=== PATIENT | male | born 1985 | race Caucasian/White ===

== ENCOUNTER 2016-11-04 19:04 | Emergency (ER) | payer SELFPAY ==
[2016-11-04 19:13] VITALS: BMI 28.7
[2016-11-04] MEDS ORDERED: ACETAMINOPHEN 325 MG TABLET (FP) ONE (19:41)
[2016-11-04] MEDS ORDERED: IBUPROFEN 400 MG TABLET (FP) PO ONE ×2 (19:46→19:57)
[2016-11-04] MEDS ORDERED: TETANUS AND DIPHTHERIA TOXOID 0.5 ML DISP.SYRIN IM ONE (19:46)
--- NOTE | 2016-11-04 19:50 | PDOC ---
History of Present Illness - General History Source: Patient Exam Limitations: No Limitations - History of Present Illness Initial Comments: 11/04/16 20:32 The patient is a 31-year-old male with no significant past medical history, and presents to the emergency department with head, neck, and ear pain s/p mechanical injury to the upper body 4 days ago. 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 He reports he has pain in the frontal region of his head that radiates down to his left ear and neck. He reports associated dizziness. He states he went to the [facility] a few days ago for this injury and had some imaging scans. The patient denies chest pain and shortness of breath. The patient denies fever , chills, nausea, vomit, diarrhea and constipation. The patient denies dysuria, frequency, urgency and hematuria. Allergies: NKDA Social History: No toxic habits reported <Marile Catalan - Last Filed: 11/04/16 22:16> <Fabian Sabillon - Last Filed: 11/04/16 22:33> - General Chief Complaint: Injury Stated Complaint: HEAD/NECK PROBLEM Past History <Mariel Catalan - Last Filed: 11/04/16 22:16> - Past Medical History Other medical history: denies - Surgical History Abdominal Surgery: Yes (hernia) - Immunization History Immunization Up to Date: Yes - Psycho/Social/Smoking Cessation Hx Suicidal Ideation: No Smoking History: Never smoked Hx Alcohol Use: No Drug/Substance Use Hx: No Substance Use Type: None <Fabian Sabillon - Last Filed: 11/04/16 22:33> - Past Medical History Allergies/Adverse Reactions: Allergies Allergy/AdvReac Type Severity Reaction Status Date / Time No Known Allergies Allergy Verified 11/04/16 19:14 Home Medications: Ambulatory Orders Doxycycline Hyclate [Vibratab -] 100 mg PO BID #42 tablet 03/01/16 Ondansetron [Zofran *Odt*] 8 mg SL TID #30 od.tablet 11/04/16 Review of Systems - Review of Systems Able to Perform ROS?: Yes Comments:: 11/04/16 20:33 GENERAL/CONSTITUTIONAL: No fever or chills. No weakness. HEAD, EYES, EARS, NOSE AND THROAT: (+) Head pain. (+) Left ear pain. No change in vision. No ear discharge. No sore throat. CARDIOVASCULAR: No chest pain or shortness of breath. RESPIRATORY: No cough, wheezing, or hemoptysis. GASTROINTESTINAL: No nausea, vomiting, diarrhea or constipation. GENITOURINARY: No dysuria, frequency, or change in urination. MUSCULOSKELETAL: (+) Neck pain. No joint or muscle swelling or pain. No back pain. SKIN: No rash NEUROLOGIC: (+) Dizziness. No headache, vertigo, loss of consciousness, or change in strength/sensation. ENDOCRINE: No increased thirst. No abnormal weight change. HEMATOLOGIC/LYMPHATIC: No anemia, easy bleeding, or history of blood clots. ALLERGIC/IMMUNOLOGIC: No hives or skin allergy. <Mariel Catalan - Last Filed: 11/04/16 22:16> *Physical Exam - Vital Signs Last Vital Signs Temp Pulse Resp BP Pulse Ox 98 F 73 18 139/80 99 11/04/16 19:07 11/04/16 19:07 11/04/16 19:07 11/04/16 19:07 11/04/16 19:07 - Physical Exam Comments: 11/04/16 22:16 GENERAL: Awake, alert, and fully oriented, in no acute distress HEAD: No signs of trauma EYES: PERRLA, EOMI, sclera anicteric, conjunctiva clear ENT: (+) Some dry cerumen. Auricles normal inspection, hearing grossly normal, nares patent, oropharynx clear without exudates. Moist mucosa NECK: Normal ROM, supple, no lymphadenopathy, JVD, or masses LUNGS: Breath sounds equal, clear to auscultation bilaterally. No wheezes, and no crackles HEART: Regular rate and rhythm, normal S1 and S2, no murmurs, rubs or gallops ABDOMEN: Soft, nontender, normoactive bowel sounds. No guarding, no rebound. No masses EXTREMITIES: Normal range of motion, no edema. No clubbing or cyanosis. No cords, erythema, or tenderness NEUROLOGICAL: Cranial nerves II through XII grossly intact. Normal speech, normal gait SKIN: Warm, Dry, normal turgor, no rashes or lesions noted. <Mariel Catalan - Last Filed: 11/04/16 22:16> - Vital Signs Last Vital Signs Temp Pulse Resp BP Pulse Ox 98 F 73 18 139/80 99 11/04/16 19:07 11/04/16 19:07 11/04/16 19:07 11/04/16 19:07 11/04/16 19:07 <Fabian Sabillon - Last Filed: 11/04/16 22:33> ED Treatment Course - Medications Given in the ED: ED Medications Discontinued Medications Generic Name Dose Route Start Last Admin Trade Name Primo PRN Reason Stop Dose Admin Acetaminophen 975 mg 11/04/16 19:53 11/04/16 19:53 Tylenol - PO 11/04/16 19:54 975 mg NOW ONE Administration Ibuprofen 800 mg 11/04/16 19:46 11/04/16 19:51 Motrin - PO 11/04/16 19:47 800 mg ONCE ONE Administration Tetanus/Diphtheria Toxoids Adsorbed 0.5 ml 11/04/16 19:46 11/04/16 19:49 Decavac - IM 11/04/16 19:47 0.5 ml .ONCE ONE Administration <Mariel Catalan - Last Filed: 11/04/16 22:16> - RADIOLOGY Radiology Studies Ordered: Category Date Time Status HEAD CT WITHOUT CONTRAST [CT] Stat CT Scan 11/04/16 19:46 Ordered Radiograph Interpretation: 11/04/16 22:32 All images negative for acute pathology. <Fabian Sabillon - Last Filed: 11/04/16 22:33> Medical Decision Making - Medical Decision Making 11/04/16 22:31 This is a 31yo M with recent head trauma with heavy metal object while at work and now has residual pain as well as minor difficulty hearing in the LEFT ear. Objectively, he has no significant hearing deficit and may benefit from out patient audiology evaluation. He will be given antiemetics and encouraged close follow up with PMD and neurologist. <Fabian Sabillon - Last Filed: 11/04/16 22:33> *DC/Admit/Observation/Transfer - Attestations Scribe Attestion: 11/04/16 20:33 Documentation prepared by Mariel Catalan, acting as medical genetics director for Fabian Sabillon MD. <Mariel Catalan - Last Filed: 11/04/16 22:16> - Discharge Dispostion Admit: No Decision to Admit order Date/Time: 11/04/16 22:30 <Fabian Sabillon S - Last Filed: 11/04/16 22:33> Diagnosis at time of Disposition: Postconcussion syndrome - Discharge Dispostion Disposition: HOME Condition at time of disposition: Good - Prescriptions Prescriptions: Ondansetron [Zofran *Odt*] 8 mg SL TID #30 od.tablet - Patient Instructions Additional Instructions: Please follow up with your PMD within the next 48 hours; if there is any change otherwise in your symptoms, please return immediately to the ED. Print Language: LEBANESE
[2016-11-04] MEDS ORDERED: ACETAMINOPHEN 500 MG TABLET (FP) PO ONE (19:53)
[2016-11-04 22:53] VITALS: BP 130/80; PULSE 87; TEMP 98.3
== END 2016-11-04 22:52 | disposition home or self-care (01) ==
LOC: JER 19:04
PROC: 3E0234Z Introduction of Serum, Toxoid and Vaccine into Muscle, Percutaneous Approach (ICD-10-PCS; principal; 2016-11-04)
DX: S06.0X0A Concussion without loss of consciousness, initial encounter (principal); W22.8XXA Striking against or struck by other objects, initial encounter; Y93.H3 Activity, building and construction; Y92.69 Other specified industrial and construction area as the place of occurrence of the external cause; Y99.0 Civilian activity done for income or pay
CPT/HCPCS: 70450-TC; 99282-25